=== PATIENT | female | born 1945 | race Hispanic/Latino ===

== ENCOUNTER 2018-12-15 16:18 | Emergency (ER) | payer MEDICARE, MEDICAID ==
[2018-12-15 16:18] VITALS: BMI 17.6
[2018-12-15 16:35] VITALS: TEMP 97.5; O2SAT 100
--- NOTE | 2018-12-15 17:46 | C.PDOC ---
History Of Present Illness Patient is a 73 year old female, with a PMHx of COPD, HTN, asthma, and pacemaker, who is biba to the ED s/p a fall from her wheelchair that [facility]. Patient states that she doesn't remember how she fell and had to be helped up by 2 aids from the penitentiary. She also notes rectum itchiness. She denies any LOC, headache, CP, SOB, dizziness, blurry vision, or back pain. Baseline confused. - HPI Time Seen by Provider: 12/15/18 16:25 Chief Complaint (Nursing): Trauma History Per: Patient, EMS History/Exam Limitations: no limitations Onset/Duration Of Symptoms: Days (1) Recent travel outside of the [place]: No Additional History Per: Patient, EMS, [facility] Past Medical History Reviewed: Historical Data, Nursing Documentation, Vital Signs Vital Signs: Last Vital Signs Temp 97.5 F L 12/15/18 16:29 Pulse 71 12/15/18 16:29 Resp 20 12/15/18 16:29 BP 121/64 12/15/18 16:29 Pulse Ox 100 12/15/18 16:29 - Medical History PMH: Anxiety, Arthritis, Asthma, Bipolar Disorder, Cardia Arrhythmia (UNSPECIFIED AFIB), COPD, Depression, Fractures, HTN, Hypercholesterolemia, Chronic Kidney Disease (UNSPECIFIED) Surgical History: No Surg Hx Family History: States: No Known Family Hx - Social History Hx Tobacco Use: No Hx Alcohol Use: No Hx Substance Use: No - Immunization History Hx Tetanus Toxoid Vaccination: No Hx Influenza Vaccination: No Hx Pneumococcal Vaccination: No Review Of Systems Constitutional: Positive for: Other (baseline confused) Eyes: Negative for: Vision Change Cardiovascular: Negative for: Chest Pain Respiratory: Negative for: Shortness of Breath Gastrointestinal: Positive for: Other (rectal itchiness) Musculoskeletal: Negative for: Back Pain Neurological: Negative for: Headache, Dizziness Physical Exam - Physical Exam Appears: No Acute Distress, Other (cachetic, appears older than stated age) Skin: Normal Color, Warm, Dry Head: Atraumatic, Normacephalic Oral Mucosa: Moist Neck: Normal ROM, Supple Chest: Symmetrical, No Deformity, Other (pacemaker) Cardiovascular: Murmur (systolic murmur 2/6 appreciated) Respiratory: Normal Breath Sounds, No Rales, No Rhonchi, No Wheezing Gastrointestinal/Abdominal: Soft, No Tenderness Extremity: No Pedal Edema Neurological/Psych: Normal Cranial Nerves, Other (AOx2, collet maker strength equal) ED Course And Treatment O2 Sat by Pulse Oximetry: 100 (on RA) Pulse Ox Interpretation: Normal - Other Rad Xray Bilateral Hip with Pelvis X-Ray: Viewed By Me, Read By Radiologist Interpretation: Indication: b/l hip pain r/o fx. Bilateral hip with pelvis radiographs. Comparison: CT abdomen and pelvis performed 05/18/14. Findings: Osseous demineralization limits evaluation for acute fracture lines. Suboptimal assessment of the pubic symphysis/pubic rami. External artifact projects over the pelvis. Moderate to severe constipation. Scoliosis of the included lower lumbar spine. No acute displaced fracture identified. Soft tissues appear unremarkable. No evidence of retained radiopaque foreign body. Impression: Limited study. Osseous demineralization. Degenerative changes. Suboptimal assessment of the pubic symphysis/pubic rami. No acute displaced fracture or dislocation identified. If high clinical index of suspicion, suggest cross- sectional imaging for further evaluation. Otherwise, if symptoms persist or if there is continued clinical concern, x-ray follow-up in 7-10 days should be considered. - CT Scan/US CT Head Other Rad Studies (CT/US): Read By Radiologist, Radiology Report Reviewed CT/US Interpretation: Date of service: 12/15/2018. PROCEDURE: CT HEAD WITHOUT CONTRAST. HISTORY: head injury r/o bleed. COMPARISON: Noncontrast head CT performed 06/13/13. TECHNIQUE: Axial computed tomography images were obtained through the head/brain without intravenous contrast. Radiation dose: Total exam DLP = 1018.86 mGy-cm. This CT exam was performed using one or more of the following dose reduction techniques: Automated exposure control, adjustment of the mA and/or kV according to patient size, and/or use of iterative reconstruction technique. FINDINGS: HEMORRHAGE: No intracranial hemorrhage. BRAIN: Diffuse atrophy with prominence of the ventricles and sulci noted. No mass effect or edema. Intracranial atherosclerosis. Moderate to severe scattered periventricular and subcortical white matter hypodensities, which are nonspecific, but often seen with chronic microvascular ischemic disease. Please note that MRI with diffusion imaging is more sensitive in the detection of acute ischemic event. VENTRICLES: No hydrocephalus. CALVARIUM: Unremarkable. PARANASAL SINUSES: Unremarkable as visualized. No significant inflammatory changes. MASTOID AIR CELLS: Unremarkable as visualized. No inflammatory changes. OTHER FINDINGS: Bilateral nasal bone fracture deformities, appear chronic; correlate clinically. IMPRESSION: Moderate to severe scattered nonspecific white matter changes. Bilateral nasal bone fracture deformities, appear chronic; correlate clinically. Progress Note: Plan: CAT Head. Xray Bilateral Hip with Pelvis Disposition Counseled Patient/Family Regarding: Studies Performed, Diagnosis, Need For Followup - Disposition Referrals: Claudia Young MD [Staff Provider] - Disposition: TRANSF TO [facility] Disposition Time: 19:00 Condition: STABLE Prescriptions: Acetaminophen [Tylenol 325mg tab] 650 mg PO Q6 PRN #30 tab PRN Reason: pain/fever Instructions: Closed Head Injury (DC) Forms: [employer] (Samoan) Print Language: CITIZEN OF [place] - Clinical Impression Clinical Impression: Closed head injury - Scribe Statement The provider has reviewed the documentation as recorded by the Scribe Lachelle Wong All medical record entries made by the Scribe were at my direction and personally dictated by me. I have reviewed the chart and agree that the record accurately reflects my personal performance of the history, physical exam, medical decision making, and the department course for this patient. I have also personally directed, reviewed, and agree with the discharge instructions and disposition.
--- NOTE | 2018-12-15 17:59 | CT ---
Date of service: 12/15/2018 PROCEDURE: CT HEAD WITHOUT CONTRAST. HISTORY: head injury r/o bleed COMPARISON: Noncontrast head CT performed 06/13/13 TECHNIQUE: Axial computed tomography images were obtained through the head/brain without intravenous contrast. Radiation dose: Total exam DLP = 1018.86 mGy-cm. This CT exam was performed using one or more of the following dose reduction techniques: Automated exposure control, adjustment of the mA and/or kV according to patient size, and/or use of iterative reconstruction technique. FINDINGS: HEMORRHAGE: No intracranial hemorrhage. BRAIN: Diffuse atrophy with prominence of the ventricles and sulci noted. No mass effect or edema. Intracranial atherosclerosis. Moderate to severe scattered periventricular and subcortical white matter hypodensities, which are nonspecific, but often seen with chronic microvascular ischemic disease. Please note that MRI with diffusion imaging is more sensitive in the detection of acute ischemic event. VENTRICLES: No hydrocephalus. CALVARIUM: Unremarkable. PARANASAL SINUSES: Unremarkable as visualized. No significant inflammatory changes. MASTOID AIR CELLS: Unremarkable as visualized. No inflammatory changes. OTHER FINDINGS: Bilateral nasal bone fracture deformities, appear chronic; correlate clinically. IMPRESSION: Moderate to severe scattered nonspecific white matter changes. Bilateral nasal bone fracture deformities, appear chronic; correlate clinically.
--- NOTE | 2018-12-15 19:02 | RAD ---
Indication: b/l hip pain r/o fx Bilateral hip with pelvis radiographs Comparison: CT abdomen and pelvis performed 05/18/14 Findings: Osseous demineralization limits evaluation for acute fracture lines. Suboptimal assessment of the pubic symphysis/pubic rami. External artifact projects over the pelvis. Moderate to severe constipation. Scoliosis of the included lower lumbar spine. No acute displaced fracture identified. Soft tissues appear unremarkable. No evidence of retained radiopaque foreign body. Impression: Limited study. Osseous demineralization. Degenerative changes. Suboptimal assessment of the pubic symphysis/pubic rami. No acute displaced fracture or dislocation identified. If high clinical index of suspicion, suggest cross-sectional imaging for further evaluation. Otherwise, if symptoms persist or if there is continued clinical concern, x-ray follow-up in 7-10 days should be considered.
[2018-12-15 19:18] VITALS: BP 114/68; PULSE 75; RESP 16
== END 2018-12-15 19:53 ==
LOC: C.ER 16:18
DX: S09.90XA Unspecified injury of head, initial encounter (principal); W05.0XXA Fall from non-moving wheelchair, initial encounter; Y92.129 Unspecified place in nursing home as the place of occurrence of the external cause

== ENCOUNTER 2018-12-20 11:02 | Emergency (ER) | payer MEDICARE, MEDICAID ==
[2018-12-20 11:03] VITALS: BMI 17.6
--- NOTE | 2018-12-20 12:06 | C.PDOC ---
History Of Present Illness 73 y/o female pt [facility]/o head trauma. Pt notes she fell out of her wheelchair and landed on her face. Pt has no other complaints or associated sx at this time. - HPI Time Seen by Provider: 12/20/18 11:12 Chief Complaint (Nursing): Trauma History Per: Patient History/Exam Limitations: no limitations Injury Occurred (Timing): Just Before Arrival Past Medical History Reviewed: Historical Data, Nursing Documentation, Vital Signs Vital Signs: Last Vital Signs Temp 98.1 F 12/20/18 11:10 Pulse 77 12/20/18 11:10 Resp 16 12/20/18 11:10 BP 107/71 12/20/18 11:10 Pulse Ox 96 12/20/18 11:10 - Medical History PMH: Anxiety, Arthritis, Asthma, Bipolar Disorder, Cardia Arrhythmia (UNSPECIFIED AFIB), COPD, Depression, Fractures, HTN, Hypercholesterolemia, Chronic Kidney Disease (UNSPECIFIED) Family History: States: No Known Family Hx - Social History Hx Tobacco Use: No Hx Alcohol Use: No Hx Substance Use: No - Immunization History Hx Tetanus Toxoid Vaccination: No Hx Influenza Vaccination: No Hx Pneumococcal Vaccination: No Review Of Systems Except As Marked, All Systems Reviewed And Found Negative. Constitutional: Positive for: Other (head trauma ) Eyes: Negative for: Vision Change ENT: Positive for: Other (nose bleed due to trauma ) Cardiovascular: Negative for: Chest Pain Respiratory: Negative for: Shortness of Breath Gastrointestinal: Negative for: Abdominal Pain Neurological: Negative for: Weakness, Numbness Physical Exam - Physical Exam Appears: Non-toxic, No Acute Distress Skin: Warm, Dry Head: Normacephalic, Tenderness (forehead and nose bridge), Swelling (forehead), Abrasion (forehead and nose, no active bleeding), No Laceration, Other (ecchymosis on forehead and nose) Eye(s): bilateral: Normal Inspection, PERRL, EOMI Nose: Deformity (mild nose bridge), No Septal Hematoma, Other (abrasion, tenderness, swelling on bridge of nose ) Oral Mucosa: Moist Tongue: Normal Appearing Lips: Normal Appearing Teeth: Normal Dentition Gingiva: Normal Appearing Throat: Normal, No Erythema, No Exudate Neck: Normal ROM, Midline Cervical Tenderness (mild tenderness), Supple Chest: Symmetrical, No Deformity, No Tenderness Cardiovascular: Rhythm Regular Respiratory: Normal Breath Sounds, No Rales, No Rhonchi, No Wheezing Gastrointestinal/Abdominal: Soft, No Tenderness Extremity: Normal ROM (x4), No Deformity, No Swelling, Other (multiple ecchymosis on arms ) Neurological/Psych: Oriented x3, Normal Speech, Normal Cognition ED Course And Treatment O2 Sat by Pulse Oximetry: 96 (RA) Pulse Ox Interpretation: Normal - CT Scan/US Cervical spine CT Other Rad Studies (CT/US): Read By Radiologist, Radiology Report Reviewed CT/US Interpretation: Accession No. : [id number]. Patient Name / ID : INA Camacho / [id number]. Exam Date : 12/20/2018 15:02:50 ( Approved ). Study Comment : Sex / Age : F / 73Y. Creator : Harris Nichole. Dictator : Ryan Chen MD. Racker [employer]ave Board : City Planner : Ryan Chen MD. Approver2 : Report Date : 12/20/2018 15:12:30. My Comment : . CT cervical spine. HISTORY: Trauma. Comparison: None available. Tech nique: Multiple contiguous axial images were performed through the cervical spine without the use of intravenous contrast. Subsequently, sagittal and coronal reformatted images were obtained. This CT exam was performed using one or more of the following dose reduction techniques: Automated exposure control, adjustment of the mA and/or kV according to patient size, and/or use of iterative reconstruction technique. Findings: Limited exam as the patient was rotated in the scanner. Dextroscoliotic curvature of the cervical spine which markedly limits evaluation. Mild to moderate anterolisthesis C3 on C4. Mild retrolisthesis of C4 on C5. Moderate anterolisthesis C7 on T1. Prominent multilevel uncovertebral joint and facet hypertrophy; left greater than right. Prominent disc space narrowing with endplate sclerosis and prominent posterior disc osteophyte complexes at the C4-5, C5-6, and C6-7 levels. Anterior osteophytosis throughout the cervical spine most prominent from the C4 through C7 levels. Loss of height of the C4 and C5 vertebral bodies. No prevertebral soft tissue swelling. Multilevel spinal canal stenosis. Punctate radiopaque density seen within the right vertebral canal on series 3, image 52 suggestive for atherosclerotic calcification. Few punctate granulomas in the right upper lung zone. Impression: Severe degenerative changes as described above. Dextroscoliotic curvature of the cervical spine which markedly limits evaluation. Mild to moderate anterolisthesis C3 on C4. Mild retrolisthesis of C4 on C5. Moderate anterolisthesis C7 on T1. Prominent multilevel uncovertebral joint and facet hypertrophy; left greater than right. Prominent disc space narrowing with endplate sclerosis and prominent posterior disc osteophyte complexes at the C4-5, C5-6, and C6-7 levels. Anterior osteophytosis throughout the cervical spine most prominent from the C4 through C7 levels. Loss of height of the C4 and C5 vertebral bodies. No prevertebral soft tissue swelling. Multilevel spinal canal stenosis. If pain persists, consider correlation with MRI orbital CT Other Rad Studies (CT/US): Read By Radiologist, Radiology Report Reviewed CT/US Interpretation: Accession No. : [id number]. Patient Name / ID : INA Camacho / [id number]. Exam Date : 12/20/2018 13:29:45 ( Approved ). Study Comment : Sex / Age : F / 73Y. Creator : Griffin Howell. Dictator : Ryan Chen MD. Racker [employer] Board : City Planner : Ryan Chen MD. Approver2 : Report Date : 12/20/2018 13:35:29. My Comment : . CT face. HISTORY: Trauma. COMPARISON: None available. TECHNIQUE: Multiple contiguous axial images were performed through the face without the use of intravenous contrast. Subsequently, sagittal and coronal reformatted images were obtained. This CT exam was performed using one or more of the following dose reduction techniques: Automated exposure control, adjustment of the mA and/or kV according to patient size, and/or use of iterative reconstruction technique. Findings: Bilateral maxillary sinuses, sphenoid sinus, ethmoid air cells, and frontal sinus are preserved. Bilateral mastoid air cells are preserved. Nasal bone deformities/fractures. Severe degenerative changes in the cervical spine with some rotary subluxation of C1 on C2. Prominent pre frontal subcutaneous soft tissue swelling hematoma formation. Orbital globes are preserved. Anterolisthesis of C3 on C4. Nasal septal deviation. Impression: Nasal bone deformities/fractures. Pre frontal subcutaneous soft tissue swelling and hematoma formation. Severe degenerative changes in the cervical spine. head CT Other Rad Studies (CT/US): Read By Radiologist, Radiology Report Reviewed CT/US Interpretation: Accession No. : [id number]. Patient Name / ID : INA Camacho / [id number]. Exam Date : 12/20/2018 13:27:45 ( Approved ). Study Comment : Sex / Age : F / 73Y. Creator : Griffin Howell. Dictator : Ryan Chen MD. Racker [employer] Board : City Planner : Ryan Chen MD. Approver2 : Report Date : 12/20/2018 13:34:45. My Comment : . Date of service: 12/20/2018. PROCEDURE: CT HEAD WITHOUT CONTRAST. HISTORY: fall. COMPARISON: None available. TECHNIQUE: Axial computed tomography images were obtained through the head/brain without intravenous contrast. Radiation dose: Total exam DLP = 1050.51 mGy-cm. This CT exam was performed using one or more of the following dose reduction techniques: Automated exposure control, adjustment of the mA and/or kV according to patient size, and/or use of iterative reconstruction technique. FINDINGS: HEMORRHAGE: No intracranial hemorrhage. BRAIN: No mass effect or edema. Scattered focal lucencies in the subcortical and periventricular white matter suggestive for chronic microvascular ischemic change. . VENTRICLES: Unremarkable. No hydrocephalus. CALVARIUM: Nasal bone deformities. PARANASAL SINUSES: Unremarkable as visualized. No significant inflammatory changes. MASTOID AIR CELLS: Unremarkable as visualized. No inflammatory changes. OTHER FINDINGS: Soft tissue swelling overlying the pre frontal cranium. IMPRESSION: No acute intracranial abnormality. Soft tissue swelling overlying the pre frontal cranium. Chronic microvascular ischemic changes. Nasal bone deformities. Question cortical irregularity at the posterior left mandible. Clinical correlation. If pain persists, consider correlation with MRI. Progress Note: Plans: -- CT head. -- CT facial bones/orbits. -- CT cervical spine. -- tetanus immunization. 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 - Scribe Statement The provider has reviewed the documentation as recorded by the Brcue Mejia Do All medical record entries made by the Bruce were at my direction and personally dictated by me. I have reviewed the chart and agree that the record accurately reflects my personal performance of the history, physical exam, medical decision making, and the department course for this patient. I have also personally directed, reviewed, and agree with the discharge instructions and disposition.
[2018-12-20] MEDS ORDERED: Bacitracin 500 Units/gm Oint Foilpak UD TOP STA (12:40)
[2018-12-20] MEDS ORDERED: Tetanus/Diphtheria Toxoids 0.5 ml Syringe IM ONE ×2 (12:40→12:56)
[2018-12-20] MEDS ORDERED: Bacitracin 500 Units/gm Oint Foilpak UD ONE (12:55)
--- NOTE | 2018-12-20 13:50 | CT ---
Date of service: 12/20/2018 PROCEDURE: CT HEAD WITHOUT CONTRAST. HISTORY: fall COMPARISON: None available. TECHNIQUE: Axial computed tomography images were obtained through the head/brain without intravenous contrast. Radiation dose: Total exam DLP = 1050.51 mGy-cm. This CT exam was performed using one or more of the following dose reduction techniques: Automated exposure control, adjustment of the mA and/or kV according to patient size, and/or use of iterative reconstruction technique. FINDINGS: HEMORRHAGE: No intracranial hemorrhage. BRAIN: No mass effect or edema. Scattered focal lucencies in the subcortical and periventricular white matter suggestive for chronic microvascular ischemic change. . VENTRICLES: Unremarkable. No hydrocephalus. CALVARIUM: Nasal bone deformities. PARANASAL SINUSES: Unremarkable as visualized. No significant inflammatory changes. MASTOID AIR CELLS: Unremarkable as visualized. No inflammatory changes. OTHER FINDINGS: Soft tissue swelling overlying the pre frontal cranium. IMPRESSION: No acute intracranial abnormality. Soft tissue swelling overlying the pre frontal cranium. Chronic microvascular ischemic changes. Nasal bone deformities. Question cortical irregularity at the posterior left mandible. Clinical correlation. If pain persists, consider correlation with MRI.
--- NOTE | 2018-12-20 13:56 | CT ---
CT face HISTORY: Trauma. COMPARISON: None available. TECHNIQUE: Multiple contiguous axial images were performed through the face without the use of intravenous contrast. Subsequently, sagittal and coronal reformatted images were obtained. This CT exam was performed using one or more of the following dose reduction techniques: Automated exposure control, adjustment of the mA and/or kV according to patient size, and/or use of iterative reconstruction technique. Findings: Bilateral maxillary sinuses, sphenoid sinus, ethmoid air cells, and frontal sinus are preserved. Bilateral mastoid air cells are preserved. Nasal bone deformities/fractures. Severe degenerative changes in the cervical spine with some rotary subluxation of C1 on C2. Prominent pre frontal subcutaneous soft tissue swelling hematoma formation. Orbital globes are preserved. Anterolisthesis of C3 on C4. Nasal septal deviation. Impression: Nasal bone deformities/fractures. Pre frontal subcutaneous soft tissue swelling and hematoma formation. Severe degenerative changes in the cervical spine.
--- NOTE | 2018-12-20 15:37 | CT ---
CT cervical spine HISTORY: Trauma. Comparison: None available. Technique: Multiple contiguous axial images were performed through the cervical spine without the use of intravenous contrast. Subsequently, sagittal and coronal reformatted images were obtained. This CT exam was performed using one or more of the following dose reduction techniques: Automated exposure control, adjustment of the mA and/or kV according to patient size, and/or use of iterative reconstruction technique. Findings: Limited exam as the patient was rotated in the scanner. Dextroscoliotic curvature of the cervical spine which markedly limits evaluation. Mild to moderate anterolisthesis C3 on C4. Mild retrolisthesis of C4 on C5. Moderate anterolisthesis C7 on T1. Prominent multilevel uncovertebral joint and facet hypertrophy; left greater than right. Prominent disc space narrowing with endplate sclerosis and prominent posterior disc osteophyte complexes at the C4-5, C5-6, and C6-7 levels. Anterior osteophytosis throughout the cervical spine most prominent from the C4 through C7 levels. Loss of height of the C4 and C5 vertebral bodies. No prevertebral soft tissue swelling. Multilevel spinal canal stenosis. Punctate radiopaque density seen within the right vertebral canal on series 3, image 52 suggestive for atherosclerotic calcification. Few punctate granulomas in the right upper lung zone. Impression: Severe degenerative changes as described above. Dextroscoliotic curvature of the cervical spine which markedly limits evaluation. Mild to moderate anterolisthesis C3 on C4. Mild retrolisthesis of C4 on C5. Moderate anterolisthesis C7 on T1. Prominent multilevel uncovertebral joint and facet hypertrophy; left greater than right. Prominent disc space narrowing with endplate sclerosis and prominent posterior disc osteophyte complexes at the C4-5, C5-6, and C6-7 levels. Anterior osteophytosis throughout the cervical spine most prominent from the C4 through C7 levels. Loss of height of the C4 and C5 vertebral bodies. No prevertebral soft tissue swelling. Multilevel spinal canal stenosis. If pain persists, consider correlation with MRI
[2018-12-20 23:20] VITALS: TEMP 98.6; O2SAT 99
[2018-12-21 00:18] VITALS: BP 145/78; PULSE 89; RESP 19
== END 2018-12-21 00:18 ==
LOC: C.ER 11:02
DX: S02.2XXA Fracture of nasal bones, initial encounter for closed fracture (principal); S00.81XA Abrasion of other part of head, initial encounter; S00.83XA Contusion of other part of head, initial encounter; W05.0XXA Fall from non-moving wheelchair, initial encounter; Y92.129 Unspecified place in nursing home as the place of occurrence of the external cause; E78.00 Pure hypercholesterolemia, unspecified; I12.9 Hypertensive chronic kidney disease with stage 1 through stage 4 chronic kidney disease, or unspecified chronic kidney disease; N18.9 Chronic kidney disease, unspecified; J44.9 Chronic obstructive pulmonary disease, unspecified; I48.91 Unspecified atrial fibrillation; Z23 Encounter for immunization

== ENCOUNTER 2019-01-23 16:47 | Emergency (ER) | payer MEDICARE, MEDICAID ==
[2019-01-23 16:47] VITALS: BMI 17.6
--- NOTE | 2019-01-23 17:35 | C.PDOC ---
History Of Present Illness 74 year old female with PMHx of arthitis, COPD, HTN, and multiple falls presents to the ED from Assisted via BLS status post fall. Reports she has a new wheelchair and is unfamiliar on how to use it because she has not had proper training on how to use it. States she was in the bathroom today and was trying to go from the chair to the toilet when she accidentally slid off the chair and landed on her right side. Patient is complaining of pain over right iliac crest. Denies any head injury, neck pain, headache, chest pain, back pain, shortness of breath, weakness or numbness. - HPI Time Seen by Provider: 01/23/19 16:55 Chief Complaint (Nursing): Trauma History Per: Patient, EMS History/Exam Limitations: no limitations Onset/Duration Of Symptoms: Hrs Injury Occurred (Timing): Just Before Arrival Location Of Injury: Right: Hip - Fall Fall:Prior To Injury: Other (slid off chair ) Past Medical History Reviewed: Historical Data, Nursing Documentation, Vital Signs Vital Signs: Last Vital Signs Temp 97.6 F 01/23/19 17:11 Pulse Resp BP Pulse Ox - Medical History PMH: Anxiety, Arthritis, Asthma, Bipolar Disorder, Cardia Arrhythmia (UNSPECIFIED AFIB), COPD, Depression, Fractures, HTN, Hypercholesterolemia, Chronic Kidney Disease (UNSPECIFIED) Surgical History: Pacemaker Family History: States: No Known Family Hx - Social History Hx Tobacco Use: No Hx Alcohol Use: No Hx Substance Use: No - Immunization History Hx Tetanus Toxoid Vaccination: No Hx Influenza Vaccination: No Hx Pneumococcal Vaccination: No Review Of Systems Except As Marked, All Systems Reviewed And Found Negative. Constitutional: Negative for: Fever, Chills Cardiovascular: Negative for: Chest Pain Respiratory: Negative for: Shortness of Breath Gastrointestinal: Negative for: Nausea, Vomiting Musculoskeletal: Positive for: Other (right iliac crest pain ). Negative for: Neck Pain, Back Pain Neurological: Negative for: Weakness, Numbness, Headache Physical Exam - Physical Exam Appears: Non-toxic, No Acute Distress, Other (frail and hunched little woman ) Skin: Warm, Dry, No Rash, Other (multiple bruises to cheeks, arms, and knees ) Head: Atraumatic, Normacephalic Eye(s): bilateral: Normal Inspection Nose: Normal Oral Mucosa: Moist Neck: No Midline Cervical Tenderness, Supple Chest: Symmetrical Cardiovascular: Rhythm Regular Respiratory: Normal Breath Sounds, No Rales, No Rhonchi, No Wheezing Gastrointestinal/Abdominal: Soft, No Tenderness Extremity: Normal ROM, No Deformity, No Swelling, Other (Full rotation of lower extremities without pain, no shortening or external rotation of both hips ) Pulses: Left Dorsalis Pedis: Normal, Right Dorsalis Pedis: Normal Neurological/Psych: Oriented x3, Normal Speech, Normal Motor, Normal Sensation Medical Decision Making Medical Decision Making: Plan - CXR - Tylenol 650mg PO - XR right hip/pelvis Disposition Counseled Patient/Family Regarding: Studies Performed, Diagnosis, Need For Followup, Rx Given - Disposition Disposition: HOME/ ROUTINE Disposition Time: 18:26 Condition: STABLE Additional Instructions: Rest, Tylenol for pain. No fractures visualized on X Ray. Prescriptions: Acetaminophen [Tylenol] 650 mg PO TID #12 capsule Instructions: Hip Pain (DC) Forms: [facility] (Malagasy), General Discharge Instructions - POA Present On Arrival: None - Clinical Impression Clinical Impression: Contusion, Contusion of right hip, Fall - Scribe Statement The provider has reviewed the documentation as recorded by the Scribe Adriana Velázquez All medical record entries made by the Scribe were at my direction and personally dictated by me. I have reviewed the chart and agree that the record accurately reflects my personal performance of the history, physical exam, medical decision making, and the department course for this patient. I have also personally directed, reviewed, and agree with the discharge instructions and disposition.
[2019-01-23 18:42] VITALS: RESP 18
--- NOTE | 2019-01-23 19:11 | RAD ---
Date of service: 01/23/2019 HISTORY: cough COMPARISON: No prior. FINDINGS: LUNGS: The lungs are hyperinflated and there is peribronchial thickening with chronic changes in both lungs. There is confluent airspace disease in the right lower. PLEURA: No pleural effusions or pneumothorax. CARDIOVASCULAR: The heart is normal in size. There is a left-sided dual lead permanent pacing device. There are aortic atherosclerotic calcifications present. OSSEOUS STRUCTURES: Within normal limits for the patient's age. VISUALIZED UPPER ABDOMEN: Normal. OTHER FINDINGS: None. IMPRESSION: Confluent airspace disease in the right lower lobe may represent atelectasis/pneumonia. COPD.
--- NOTE | 2019-01-23 19:13 | RAD ---
PROCEDURE: Right Hip Radiographs. HISTORY: fall COMPARISON: None. TECHNIQUE: 2 views obtained. FINDINGS: BONES: The pelvic ring is intact. There is diffuse bone demineralization. No acute displaced fracture or bone destruction. Bone alignment is normal. JOINTS: Mild degenerative osteoarthrosis in the hip joints. The sacroiliac joints are normal. There is normal pubic symphysis. SOFT TISSUES: Normal. OTHER FINDINGS: None. IMPRESSION: No acute displaced fracture or dislocation. Please note occult fractures cannot be excluded on plain radiographs. If there is a persistent clinical concern, an MRI of the hip may be performed for further evaluation.
[2019-01-23 21:21] VITALS: BP 110/70; PULSE 82; TEMP 98.2; O2SAT 97
== END 2019-01-23 21:21 | disposition home or self-care (01) ==
LOC: C.ER 16:47
DX: S70.01XA Contusion of right hip, initial encounter (principal); W05.0XXA Fall from non-moving wheelchair, initial encounter; Z91.81 History of falling; Y92.121 Bathroom in nursing home as the place of occurrence of the external cause

== ENCOUNTER 2019-01-30 08:11 | Outpatient (CLI) | payer MEDICARE, MEDICAID | END 2019-01-30 08:12 | disposition home or self-care (01) | LOC: C.CTH 08:11 | DX: R10.9 Unspecified abdominal pain (principal) ==

== ENCOUNTER 2019-02-03 21:29 | Emergency (ER) | payer MEDICARE, MEDICAID ==
[2019-02-03 21:29] VITALS: BMI 17.6
--- NOTE | 2019-02-03 22:39 | C.PDOC ---
History Of Present Illness 74 year old female is [facility] the ED [facility]. Patient c/o tailbone, left thumb pain s/p slipping out of her wheelchair. Patient reports her wheelchair cushion is uneven. Patient denies fever, chills, headache, head injury, LOC, visual changes, symptoms prior to the fall, CP, SOB, weakness, numbness. Patient currently taking blood thinners. - HPI Chief Complaint (Nursing): Trauma History Per: Patient History/Exam Limitations: no limitations Onset/Duration Of Symptoms: Hrs Injury Occurred (Timing): Just Before Arrival Location Of Injury: Left: Hand Recent travel outside of the [place] States: No Additional History Per: Patient - Fall Fall:Prior To Injury: Slipped Past Medical History Reviewed: Historical Data, Nursing Documentation, Vital Signs Vital Signs: Last Vital Signs Temp 97.6 F 02/03/19 21:47 Pulse 72 02/03/19 21:47 Resp 16 02/03/19 21:47 BP 120/53 L 02/03/19 21:47 Pulse Ox 97 02/03/19 21:47 Primary Care Provider: Claudia Young - Medical History PMH: Anxiety, Arthritis, Asthma, Bipolar Disorder, Cardia Arrhythmia (UNSPECIFIED AFIB), COPD, Depression, Fractures, HTN, Hypercholesterolemia, Chronic Kidney Disease (UNSPECIFIED) Surgical History: Pacemaker Family History: States: Unknown Family Hx - Social History Hx Tobacco Use: No Hx Alcohol Use: No Hx Substance Use: No - Immunization History Hx Tetanus Toxoid Vaccination: No Hx Influenza Vaccination: No Hx Pneumococcal Vaccination: No Review Of Systems Constitutional: Negative for: Fever, Chills Cardiovascular: Negative for: Chest Pain, Palpitations Respiratory: Negative for: Shortness of Breath Gastrointestinal: Negative for: Nausea, Vomiting, Abdominal Pain Musculoskeletal: Positive for: Hand Pain Skin: Negative for: Rash Neurological: Negative for: Weakness, Numbness, Headache, Dizziness Physical Exam - Physical Exam Appears: Non-toxic, No Acute Distress, Other (thin) Skin: Normal Color, Warm, Dry Head: Atraumatic, Normacephalic Eye(s): bilateral: Normal Inspection, PERRL, EOMI Oral Mucosa: Moist Neck: Normal ROM, Supple Chest: Symmetrical Cardiovascular: Rhythm Regular, Murmur (systolic) Respiratory: Normal Breath Sounds, No Rales, No Rhonchi, No Wheezing Gastrointestinal/Abdominal: Soft, No Tenderness, No Distention Extremity: Normal ROM, Tenderness (lateral asoect at the base of left thumb), Capillary Refill (< 2 seconds), Other (lateral aspect at the base of left thumb skin tear, no active bleeding) Pulses: Left Radial: Normal, Right Radial: Normal Neurological/Psych: Oriented x3, Normal Speech, Normal Cognition Gait: Steady ED Course And Treatment O2 Sat by Pulse Oximetry: 97 (ON RA) Pulse Ox Interpretation: Normal Medical Decision Making Medical Decision Making: Plan: * LEft hand X-RAy * Pelvis X-Ray Disposition - Disposition Referrals: Claudia Young MD [Staff Provider] - Disposition: HOME/ ROUTINE Disposition Time: 22:50 Condition: GOOD Additional Instructions: MARCELA BUCKLEY, thank you for letting us take care of you today. The emergency medical care you received today was directed at your acute symptoms. If you were prescribed any medication, please fill it and take as directed. It may take several days for your symptoms to resolve. Return to the Emergency Department if your symptoms worsen, do not improve, or if you have any other problems. Please contact your doctor or call one of the physicians/clinics you have been referred to that are listed on the Patient Visit Information form that is included in your discharge packet. Bring any paperwork you were given at discharge with you along with any medications you are taking to your follow up visit. Our treatment cannot replace ongoing medical care by a primary care provider outside of the emergency department. Thank you for allowing the [facility] team to be part of your care today. You x-ray were negative for a fracture. Follow up with your primary care doctor this week for re-evaluation and further management. Instructions: Sprained Thumb (DC) Forms: [employer] (Tunisian) - Clinical Impression Clinical Impression: Thumb sprain, Abrasion of thumb - Scribe Statement The provider has reviewed the documentation as recorded by the Scribe David Santiago All medical record entries made by the Scribe were at my direction and personally dictated by me. I have reviewed the chart and agree that the record accurately reflects my personal performance of the history, physical exam, medical decision making, and the department course for this patient. I have also personally directed, reviewed, and agree with the discharge instructions and disposition.
[2019-02-04] MEDS ORDERED: Bacitracin 500 Units/gm Oint Foilpak UD ONE (00:05)
[2019-02-04 04:21] VITALS: BP 121/60; PULSE 71; RESP 15; TEMP 98.1; O2SAT 96
--- NOTE | 2019-02-04 07:29 | RAD ---
Date of service: 02/03/2019 PROCEDURE: Radiographs of the pelvis. HISTORY: r/o fx COMPARISON: None. TECHNIQUE: 1 view obtained. FINDINGS: BONES: Diffuse osteopenia suggests osteoporosis. Overlying bowel obscures sacrum and medial iliac bones bilaterally. No definitive displaced fracture is appreciated throughout the pelvic ring with the pubic bones intact grossly. JOINTS: The bilateral hip joints appear mildly degenerated bilaterally. Sacroiliac Joints: Moderate degenerative changes are appreciate the bilateral sacroiliac joints which do not appear distracted. Pubic Symphysis: Unremarkable. OTHER FINDINGS: None. IMPRESSION: No displaced fracture identified throughout the pelvic ring grossly. Diffuse osteopenia suggests osteoporosis. Overlying bowel obscures sacrum and medial iliac bones bilaterally. Diffuse osteopenia suggests osteoporosis.
--- NOTE | 2019-02-04 07:32 | RAD ---
Date of service: 02/03/2019 PROCEDURE: Left Thumb radiographs. HISTORY: r/o fx COMPARISON: None. TECHNIQUE: AP radiograph of the left hand, as well as spot oblique and lateral images of thumb were obtained. 4 views obtained. FINDINGS: LEFT THUMB: Diffuse osteopenia suggests osteoporosis. No definite fracture of the left thumb is identified or destructive bony lesion focally. Definitive fracture identified in remainder of the left hand (as seen on the AP view). JOINTS: Gross degenerative changes are identified at the basal joint with mild degenerative subluxation of the 1st metacarpal bone relative to the trapezium. Degenerative changes are also incidentally identified throughout the interphalangeal joints diffusely. SOFT TISSUES: Normal. OTHER FINDINGS: None. IMPRESSION: No acute fracture appreciable. Advanced degenerative joint disease at the basal joint with mild degenerative subluxation of the 1st metacarpal bone proximal relative to the trapezium. Diffuse osteopenia suggests osteoporosis. Incidental degenerative changes are seen throughout the interphalangeal joints left hand.
== END 2019-02-04 04:11 | disposition home or self-care (01) ==
LOC: C.ER 21:29
DX: S63.602A Unspecified sprain of left thumb, initial encounter (principal); S60.319A Abrasion of unspecified thumb, initial encounter; W05.0XXA Fall from non-moving wheelchair, initial encounter; I48.91 Unspecified atrial fibrillation; J44.9 Chronic obstructive pulmonary disease, unspecified; E78.00 Pure hypercholesterolemia, unspecified; I12.9 Hypertensive chronic kidney disease with stage 1 through stage 4 chronic kidney disease, or unspecified chronic kidney disease; N18.9 Chronic kidney disease, unspecified

== ENCOUNTER 2019-02-19 07:19 | Emergency (ER) | payer MEDICARE, MEDICAID ==
[2019-02-19 07:19] VITALS: BMI 17.6
--- NOTE | 2019-02-19 07:57 | C.PDOC ---
History Of Present Illness 74 year old female presents to the emergency department for recurring fall at 11:30 PM last night with complaints of a head injury. Patient states that she was trying to transfer herself to a chair, but missed and fell onto the floor. Patient states that she was immediately assisted by staff, and has now been sent for evaluation. Patient complains of a scalp contusion and "bump". She denies loss of consciousness, nausea, and vomiting. Patient currently complains of "just feeling tired." Patient has a history of multiple prior ER visits for falls, stating that "I fall down a lot". Patient denies other new injuries. Patient reports multiple areas of bruising and abrasions from prior injuries. Patient also reports chronic right ankle wound, for which she is currently received a bid wound dressing, stating "it's slowly getting better". RECUR FALL @ 2330 CO HEAD INJURY. PS TRYING TO TRANSFER HERSELF TO CHAIR, MISSED AND FELL ONTO FLOOR. IMMEDIATELY ASSISTED TO BED BY STAFF, SENT FOR EVAL NOW. CO SCALP CONTUSION AND "BUMP". NO LOC, NV. CURRENTLY CO "JUST FEELING TIRED". HO MULT PRIOR ER VISITS FOR FALL "I FALL DOWN ALOT". PT DENIES OTHER NEW INJURY. MULT BRUISING AND ABRASIONS FROM PRIOR INJURIES. CHRONIC R ANKLE WOUND CURRENTLY RECEIVING BID WOUND DRESSING. "IT'S SLOWLY GETTING BETTER" EXAM NONTOXIC NAD HEENT +POSTERIOR SCALP HEMATOMA W MIN LOCAL TEND; HEALING L FACIAL ECHYMOSIS; EOMI; CONJ CLEAR; NOSE CLEAR NECK SUPPLE NONTEND EXT AROM WO DIFF; MULT BRUISING VARIOUS HEALING STAGES SKIN +OLD ABRASION L HAND, NO INFXN; CHRONIC R ANKLE WOUND NEURO AO3, NO FOCAL DEF REMAINDER NEG MDM HEAD INJURY HO MULT FALLS. NO REPORTED NV, LOC, OTHER FOCAL SX SINCE FALL @ 2330. HEAD CT, REASSESS - HPI Time Seen by Provider: 02/19/19 07:43 Chief Complaint (Nursing): Trauma History Per: Patient History/Exam Limitations: no limitations Injury Occurred (Timing): Hours Ago: (9) Location Of Injury: Posterior: Head - Fall Fall:Prior To Injury: Other (missed chair) Past Medical History Reviewed: Historical Data, Nursing Documentation, Vital Signs Vital Signs: Last Vital Signs Temp 97.4 F L 02/19/19 07:36 Pulse 77 02/19/19 07:36 Resp 20 02/19/19 07:36 BP 126/78 02/19/19 07:36 Pulse Ox 100 02/19/19 07:36 Primary Care Provider: Claudia Young - Medical History PMH: Anxiety, Arthritis, Asthma, Bipolar Disorder, Cardia Arrhythmia (UNSPECIFIED AFIB), COPD, Depression, Fractures, HTN, Hypercholesterolemia, Chronic Kidney Disease (UNSPECIFIED) Surgical History: Pacemaker Family History: States: No Known Family Hx - Social History Hx Tobacco Use: No Hx Alcohol Use: No Hx Substance Use: No - Immunization History Hx Tetanus Toxoid Vaccination: (unk) Hx Influenza Vaccination: Yes (11/18/18) Hx Pneumococcal Vaccination: Yes (11/20/17) Review Of Systems Except As Marked, All Systems Reviewed And Found Negative. Constitutional: Negative for: Fever, Chills Musculoskeletal: Positive for: Other (scalp bump) Skin: Positive for: Other (bruising, abrasion, right ankle wound) Neurological: Negative for: Other (loss of consciousness) Physical Exam - Physical Exam Appears: Non-toxic, No Acute Distress Skin: Warm, Dry, Other (old abrasion to the left hand with no sign of infection, chronic right ankle wound. ) Head: Normacephalic, Other (posterior scalp hematoma with minimal local tenderness, healing left facial ecchymosis) Eye(s): bilateral: Normal Inspection, PERRL, EOMI, Other (conjunctiva clear) Ear(s): Bilateral: Normal Nose: Normal Oral Mucosa: Moist Neck: No Midline Cervical Tenderness, No Paracervical Tenderness, Supple Chest: Symmetrical Cardiovascular: Rhythm Regular Respiratory: Normal Breath Sounds Extremity: Normal ROM (without difficulty), Other (multiple areas of bruising with various healing stages) Neurological/Psych: Oriented x3, Normal Speech, Normal Cognition, Other (no focal deficits) ED Course And Treatment O2 Sat by Pulse Oximetry: 100 (RA) Pulse Ox Interpretation: Normal - CT Scan/US Head CT Other Rad Studies (CT/US): Read By Radiologist, Radiology Report Reviewed CT/US Interpretation: Date of service: 02/19/2019. PROCEDURE: CT HEAD WITHOUT CONTRAST. HISTORY: TRAUMA. COMPARISON: None available. TECHNIQUE: Axial computed tomography images were obtained through the head/brain without intravenous contrast. Radiation dose: Total exam DLP = 975.18 mGy-cm. This CT exam was performed using one or more of the following dose reduction techniques: Automated exposure control, adjustment of the mA and/or kV according to patient size, and/or use of iterative reconstruction technique. FINDINGS: HEMORRHAGE: No intracranial hemorrhage. BRAIN: There are moderate chronic microangiopathic changes. There is no mass, mass effect or abnormal extra-axial fluid collection. There is no territorial infarction. The midline sagittal structures are normal. VENTRICLES: There is moderate age-related global parenchymal volume loss and proportionate enlargement of the ventricles and cortical sulci. CALVARIUM: There is no calvarial fracture or extracranial soft tissue swelling. PARANASAL SINUSES: Predominantly clear. MASTOID AIR CELLS: Predominantly clear. OTHER FINDINGS: There are old fracture deformities in the nasal bones. IMPRESSION: No acute intracranial abnormality. No significant interval change. Moderate chronic microangiopathic changes and moderate age-related global parenchymal volume loss. Progress Note: Plan: CT Head. Glucose POC Progress - Re-Evaluation Re-evaluation Note: 02/19/19 08:44 VSS NAD NEURO EXAM UNCH FROM INITIAL. DC - Data Reviewed Data Reviewed: Diagnostic imaging, Old records Medical Decision Making Medical Decision Making: Head injury with history of multiple falls, no reported nausea, vomiting, LOC, other focal symptoms since fall at 23:30. Plan for Head CT and re-assessment. Disposition Counseled Patient/Family Regarding: Studies Performed, Diagnosis, Need For Followup - Disposition Referrals: YOUR,PMD [Other] Disposition: HOME/ ROUTINE Disposition Time: 08:44 Condition: IMPROVED Instructions: Minor Head Injury (DC) Forms: [facility] (Bangladeshi) - Clinical Impression Clinical Impression: Closed head injury - Scribe Statement The provider has reviewed the documentation as recorded by the Scribe (Alvaro Bolden) Provider Attestation: All medical record entries made by the Scribe were at my direction and personally dictated by me. I have reviewed the chart and agree that the record accurately reflects my personal performance of the history, physical exam, medical decision making, and the department course for this patient. I have also personally directed, reviewed, and agree with the discharge instructions and disposition.
--- NOTE | 2019-02-19 08:34 | CT ---
Date of service: 02/19/2019 PROCEDURE: CT HEAD WITHOUT CONTRAST. HISTORY: TRAUMA COMPARISON: None available. TECHNIQUE: Axial computed tomography images were obtained through the head/brain without intravenous contrast. Radiation dose: Total exam DLP = 975.18 mGy-cm. This CT exam was performed using one or more of the following dose reduction techniques: Automated exposure control, adjustment of the mA and/or kV according to patient size, and/or use of iterative reconstruction technique. FINDINGS: HEMORRHAGE: No intracranial hemorrhage. BRAIN: There are moderate chronic microangiopathic changes. There is no mass, mass effect or abnormal extra-axial fluid collection. There is no territorial infarction. The midline sagittal structures are normal. VENTRICLES: There is moderate age-related global parenchymal volume loss and proportionate enlargement of the ventricles and cortical sulci. CALVARIUM: There is no calvarial fracture or extracranial soft tissue swelling. PARANASAL SINUSES: Predominantly clear. MASTOID AIR CELLS: Predominantly clear. OTHER FINDINGS: There are old fracture deformities in the nasal bones. IMPRESSION: No acute intracranial abnormality. No significant interval change. Moderate chronic microangiopathic changes and moderate age-related global parenchymal volume loss.
[2019-02-19 08:58] VITALS: TEMP 98.9; O2SAT 97
[2019-02-19 11:12] VITALS: BP 111/67; PULSE 64; RESP 14
== END 2019-02-19 11:11 | disposition home or self-care (01) ==
LOC: C.ER 07:19
DX: S00.03XA Contusion of scalp, initial encounter (principal); W18.30XA Fall on same level, unspecified, initial encounter